=== PATIENT | male | born 1985 | race Caucasian/White ===

== ENCOUNTER 2022-10-22 16:36 | Emergency (ER) | payer OTHER ==
[2022-10-22] MEDS: Ketorolac 60 MG/2 ML SDV IM ONE (17:19)
[2022-10-22] MEDS ORDERED: Acetaminophen/HYDROcodone 325-5 MG Tab ONE (18:00)
[2022-10-22] MEDS ORDERED: Naproxen 500 MG Tab ONE (18:00)
[2022-10-22] MEDS: Ketorolac 60 MG/2 ML SDV ONE (18:05)
[2022-10-22] MEDS: Morphine 4 MG/ML VIAL ONE (18:07)
[2022-10-22] MEDS: Morphine 2 MG/ML SYRINGE IM ONE (18:08)
== END 2022-10-22 18:35 | disposition home or self-care (01) ==
LOC: LB.ED 16:36
DX: S83.501A Sprain of unspecified cruciate ligament of right knee, initial encounter (principal); Z91.030 Bee allergy status; Z91.048 Other nonmedicinal substance allergy status; W00.0XXA Fall on same level due to ice and snow, initial encounter
CPT/HCPCS: 73562-RT; 96372; 99283; A9270-GY; J1885; J2270